=== PATIENT | female | born 1980 ===

== ENCOUNTER 2022-05-29 15:32 | Emergency (ER) | payer OTHER, SELFPAY ==
[2022-05-29 16:36] VITALS: BP 157/91; PULSE 80; RESP 14; TEMP 35.8; O2SAT 100; BMI 37.0
[2022-05-29 16:50] LABS: MANUAL DIFF FLAG NO
[2022-05-29 16:52] LABS: Basophils Absolute Auto 0.1 X10*3/uL (0.0-0.2); Basophils Percent Auto 0.5 % (0-2); Eosinophils Absolute Auto 0.1 X10*3/uL (0.0-0.4); Eosinophils Percent Auto 1.1 % (0-4); Hemoglobin 14.5 g/dl (12.0-16.0); Imm Gran Abs Auto 0.03 X10*3/uL (0.00-0.03); Imm Gran Pct Auto 0.3 % (0.0-0.4); Lymphocytes Absolute Auto 1.9 X10*3/uL (1.2-4.9); Lymphocytes Percent Auto 17.4 % (20-40); Mean Corpuscular HGB Conc 33.7 g/dl (31.0-35.0); Mean Corpuscular Hemoglobin 30.5 pg (27.0-33.0); Mean Corpuscular Volume 90.3 fL (80.0-98.0); Mean Platelet Volume 9.1 fL (9.4-12.3); Monocytes Absolute Auto 0.8 X10*3/uL (0.1-1.2); Monocytes Percent Auto 7.7 % (2-11); Platelet Count 264 X10*3/uL (160-400); Red Blood Count 4.76 X10*6/uL (4.20-5.50)
[2022-05-29 17:05] LABS: Alanine Aminotransferase 14 U/L (0-31); Albumin Level 4.4 g/dL (3.5-5.0); Alkaline Phosphatase 55 U/L (39-117); Anion Gap 12 (12-20); Aspartate Amino Transferase 16 U/L (5-31); Bilirubin Total 0.5 mg/dL (0.0-1.0); Blood Urea Nitrogen 15 mg/dL (9-16); Calcium 9.4 mg/dL (8.4-10.2); Carbon Dioxide 27 mmol/L (22-29); Chloride 105 mmol/L (96-108); Creatinine Clr Calc Pharmacy 84.1; Estimated Glomerular Filt Rate > 60; Glucose Random 79 mg/dL (60-115); Sodium 140 mmol/L (135-145); Total Protein 7.6 g/dL (6.5-8.0)
[2022-05-30 00:58] VITALS: BP 131/71; PULSE 79; RESP 16; O2SAT 98
--- NOTE | 2022-05-30 01:12 | PC.NURSE ---
Assumed care of pt at 0112.
--- NOTE | 2022-05-30 01:15 | PC.NURSE ---
Pt states she felt a little dizzy, off, and confused while at work. She started to menstruate yesterday but noticed today was very heavy and she found that she had some 'clots' as well. Pt states this is not typical for her. Pt c/o fatigue.
--- NOTE | 2022-05-30 01:40 | ED_ITS ---
HPI - General Adult General Chief complaint: General Medical Stated complaint: Heavy menstruation/Weakness Time Seen by Provider: 05/30/22 01:40 Source: patient Mode of arrival: ambulatory Limitations: language barrier (Haitian speaking only, lobster fisherman used) History of Present Illness HPI narrative: 41-year-old female who presents emergency department for evaluation of unusually heavy menstrual periods. Patient states that she gets monthly menstrual periods. She states that 3 days prior she started to menstruate. She states that the menstrual flow is much heavier than usual. She states that she is soaking through 10 pads per day as opposed to 3-4 pads per day. She states that normally her menstrual blood is clotted and dark and now her menstrual blood is liquidy and bright red. She denied any abdominal pain. She denied fever or chills. She denied lightheadedness, dizziness or weakness. She states that she was at work when she did not feel well sober coworkers brought her to the emergency department for evaluation. The patient is a . She had 1 C- section in the past. Related Data Allergies Allergy/AdvReac Type Severity Reaction Status Date / Time No Known Allergies Allergy Verified 05/29/22 16:36 Review of Systems Review of Systems: Yes all other systems are reviewed and are negative [facility] Past Medical History [facility] Narrative: Past medical history: None. Patient is a . Past surgical history C- section. Social history: She denies tobacco, alcohol and drug use. Social History Social History Alcohol intake: never Patient Tobacco Use Status: Never used Tobacco Use of substances other than those prescribed or required for medical reasons: No Advance Directives: No Physical Exam ED Vital Signs: Vital Signs - 24 hr 05/29/22 16:36 05/30/22 00:58 Temperature 96.5 F L Pulse Rate 80 79 Respiratory Rate 14 16 Blood Pressure 157/91 H 131/71 Pulse Oximetry 100 98 Oxygen Delivery Method Room Air Room Air BMI result Body Mass Index 37.0 Const General: cooperative and no acute distress Orientation/consciousness: oriented to person and oriented to place Limitations: no limitations HENMT Head: Yes normal to inspection, Yes normocephalic and Yes atraumatic Ears: external ears normal General nose exam: Normal external nose present Face and sinus: Yes normal facial exam Mouth: Normal oral and palatal mucosa present Throat: Yes posterior oropharynx normal Eyes General: appearance normal, both eyes and all related structures Pupils: Equal, round and reactive pupils present Neck Neck: Yes normal visual inspection, Yes no lymphadenopathy, Yes trachea midline and Yes supple Chest Chest palpation & inspection: normal inspection of the chest and normal palpati on of entire chest wall Resp Effort & Inspection: normal respiratory effort and able to speak in complete sentences Auscultation: clear to auscultation bilaterally Cardio Rate: regular rate Rhythm: regular rhythm Heart sounds: S1 normal heart sound present, S2 normal heart sound present and no murmurs GI Inspection: Yes normal to inspection Palpation (GI): Soft to palpation, nontender and no guarding Auscultation: normal bowel sounds Other: The pelvic exam was deferred as per patient request. General: Yes no CVA tenderness Back/Spine/Pelvis Back: no CVA tenderness Skin General skin exam: no rashes or lesions noted Neuro General: oriented to person and oriented to place Cranial nerves: Yes CN's II-XII intact bilaterally and Yes Equal, round and reactive pupils present Cognition (Neuro): normal cognition Motor exam (neuro): 5/5 motor strength present throughout Extrem General: Yes normal to inspection Psych Appearance: grossly normal Speech and movement: Normal speech and movement present Affect: normal affect Attitude: cooperative Thought process: Normal thought process present Thought content: Normal thought content present Course Course Course Narrative: 41-year-old female who presents emergency department for evaluation for evaluation of heavy menstrual bleeding x3 days. The patient gets monthly periods. She states that she is bleeding more than usual, soaking to 10 pads per day as opposed to 3-4 pads. She also states that the menstrual blood is not clotted and is watery and bright red. She denied abdominal pain, lightheadedness, dizziness, fever chills. She is a and had 1 in the past. Vital signs did reveal an elevated blood pressure of 157/91 otherwise were unremarkable. Patient had no abdominal tenderness. I did discuss doing a pelvic exam on the patient however she deferred at this time and does not want a pelvic exam. The patient's laboratory evaluation revealed a normal H&H of 14 in 43 which I think is very reassuring. I did discuss this with her. I do not think the patient needs to be started on Provera at this time and I believe that this menstrual period will resolve the next week. The patient was given printed instructions on dysfunctional menstrual bleeding. She was advised to follow-up with our adding machine servicer on-call for re-evaluation. Medical Decision Making Lab Data Result diagrams: 05/29/22 16:41 05/29/22 16:41 Labs: Lab Results 05/29/22 05/29/22 Range/Units 16:41 16:41 WBC 11.0 H (4.8-10.8) X10*3/uL RBC 4.76 (4.20-5.50) X10*6/uL Hgb 14.5 (12.0-16.0) g/dl Hct 43.0 (37.0-47.0) % MCV 90.3 (80.0-98.0) fL MCH 30.5 (27.0-33.0) pg MCHC 33.7 (31.0-35.0) g/dl RDW 12.0 (11.0-16.0) % Plt Count 264 (160-400) X10*3/uL MPV 9.1 L (9.4-12.3) fL Immature Gran % (Auto) 0.3 (0.0-0.4) % Neut % (Auto) 73.0 (45-73) % Lymph % (Auto) 17.4 L (20-40) % [place] % (Auto) 7.7 (2-11) % Eos % (Auto) 1.1 (0-4) % Baso % (Auto) 0.5 (0-2) % Lymph # (Auto) 1.9 (1.2-4.9) X10*3/uL [place] # (Auto) 0.8 (0.1-1.2) X10*3/uL Eos # (Auto) 0.1 (0.0-0.4) X10*3/uL Baso # (Auto) 0.1 (0.0-0.2) X10*3/uL Abs Immat Gran (auto) 0.03 (0.00-0.03) X10*3/uL Absolute Neuts (auto) 8.0 (2.0-8.3) x10*3/uL Absolute Nucleated RBC 0.000 (0.0-0.012) X10*3/uL Nucleated RBC % (auto) 0.0 (0.0-0.2) /100WBC Sodium 140 (135-145) mmol/L Potassium 4.0 (3.3-5.1) mmol/L Chloride 105 (96-108) mmol/L Carbon Dioxide 27 (22-29) mmol/L Anion Gap 12 (12-20) BUN 15 (9-16) mg/dL Creatinine 0.85 (0.5-1.4) mg/dL Estim Creat Clear Calc 84.1 Estimated GFR > 60 Random Glucose 79 (60-115) mg/dL Calcium 9.4 (8.4-10.2) mg/dL Total Bilirubin 0.5 (0.0-1.0) mg/dL AST 16 (5-31) U/L ALT 14 (0-31) U/L Alkaline Phosphatase 55 (39-117) U/L Total Protein 7.6 (6.5-8.0) g/dL Albumin 4.4 (3.5-5.0) g/dL Discharge Plan Discharge Clinical Impression: Heavy menstrual bleeding Qualifiers: Menorrhagia type: with regular cycle Qualified Code(s): N92.0 - Excessive and frequent menstruation with regular cycle Patient Disposition: Home, Self-Care Instructions: Menorrhagia (ED) Additional Instructions: Your hematocrit and hemoglobin were normal at 14 and 43 which is very reassuring. I believe that this is and unusually heavy menstrual period for you and it should resolve in the next week. Follow the printed instructions on please return to the emergency department if your symptoms get worse or if you develop any new symptoms that are concerning to you. Follow-up with our on-call adding machine servicer, Dr. Dominguez. Call his office to make an appointment with the next available provider Print Language: Haitian
[2022-05-30 03:04] VITALS: BP 122/73; PULSE 68; RESP 18; TEMP 36.1
--- NOTE | 2022-05-30 03:16 | PC.NURSE ---
Reviewed discharge instruction with pt. Pt verbalized understanding. Pt a&o, no sob or chest pain. pt able to ambulate with a steady gait.
== END 2022-05-30 03:18 | disposition home or self-care (01) ==
PROVIDERS: Emergency Provider Emergency Medicine Emergency Medical Services
DX: N92.0 Excessive and frequent menstruation with regular cycle (principal)
CPT/HCPCS: 36415; 80053; 85025; 99283; 99284

== ENCOUNTER 2023-04-12 17:49 | Emergency (ER) | payer OTHER, SELFPAY ==
--- NOTE | ~2023-04-12 | US_ITS ---
EXAMINATION: US ABDOMEN LIMITED CLINICAL INFORMATION: Right upper quadrant pain. COMPARISON: None available. TECHNIQUE: Real-time imaging of the right upper quadrant abdominal viscera. FINDINGS: PANCREAS: Normal. LIVER: Within the right hepatic lobe, a 0.9 x 1.1 x 0.7 cm hyperechoic, circumscribed mass is seen. This shows no significant associated color Doppler flow. This is a benign finding, which requires no imaging follow-up. Within the left hepatic lobe, a 6 mm in maximal diameter benign, simple cyst is seen. The liver is normal in size. The liver contour is normal. Parenchymal echogenicity is normal. There is no intrahepatic biliary duct dilatation seen. GALLBLADDER: Normal. The gallbladder is physiologically distended without evidence of stones, sludge, polyps, wall thickening or pericholecystic fluid. COMMON BILE DUCT: Normal in caliber measuring 0.3 cm in diameter. RIGHT KIDNEY: At the interpolar aspect, a 3.1 x 2.4 x 3.1 cm mildly complex cyst is seen, with fine septation. This shows no mural nodularity or associated color Doppler flow. There is pelviectasis, without eduardo hydronephrosis. No renal calculi or focal parenchymal lesions. The kidney measures 10.8 cm in maximum dimension. FREE FLUID: None. US/US abdomen limited IMPRESSION: 1. Within the right hepatic lobe, a 1.1 cm hyperechoic, circumscribed mass is seen, with ultrasound features characteristic for a benign hemangioma. This is of doubtful clinical significance. If of clinical concern (i.e., history of hepatocellular disease or known malignancy), this can be further evaluated with dynamic CT or MRI. 2. A 3.1 cm mildly complex right renal cyst is seen, with fine septation. If relevant to patient management, this can be more fully evaluated with contrast-enhanced CT or MRI (renal mass protocol).
--- NOTE | 2023-04-12 19:52 | ED_ITS ---
HPI - General Adult General Chief complaint: Abdominal Pain Stated complaint: abdominal pain Time Seen by Provider: 04/13/23 02:10 Source: patient Mode of arrival: ambulatory Limitations: no limitations History of Present Illness HPI narrative: This is a [id number]-female presenting to the emergency department with a complaint of right upper quadrant abdominal pain x 1 month. Started on oral control 3 months ago, however the hormone level was too high for her as she did not feel well on them, and her doctor switched her to the lowest dose of control 1 month ago and has had abdominal pain since. She has had intermittent nausea and vomiting. Admits to having diarrhea x 2 days. LMP April 01. patient states that her pain is mostly in the epigastric area Onset (ago): month(s) Location: abdomen Severity: mild Quality: burning Related Data Previous Rx's Medication Instructions Recorded pantoprazole 40 mg tablet,delayed 40 mg PO DAILY #20 tabs 04/13/23 release (Protonix) Allergies Allergy/AdvReac Type Severity Reaction Status Date / Time No Known Allergies Allergy Verified 05/29/22 16:36 Review of Systems Review of Systems: Yes all other systems are reviewed and are negative Gastrointestinal: Gastrointestinal: Reports abdominal pain, Reports nausea and Reports vomiting PMFSH Social History Social History Alcohol intake: never Patient Tobacco Use Status: Never used Tobacco Advance Directives: No Advance Directives Information Provided: Yes Physical Exam ED Vital Signs: Vital Signs - 24 hr 04/12/23 19:54 04/13/23 01:33 Temperature 98.4 F 98.0 F Pulse Rate 86 78 Respiratory Rate 18 16 Blood Pressure 164/89 H 174/82 H Pulse Oximetry 100 98 Oxygen Delivery Method Room Air Room Air BMI result Body Mass Index 37.5 Const Other: appears uncomfortable Nutritional Appearance: obese Orientation/consciousness: oriented to person and patient oriented x3 Limitations: no limitations HENMT Head: Yes normal to inspection Ears: external ears normal General nose exam: Normal external nose present Mouth: Normal oral and palatal mucosa present and oropharynx normal Throat: Yes posterior oropharynx normal Eyes General: appearance normal, both eyes and all related structures Neck Neck: Yes normal visual inspection Chest Chest palpation & inspection: normal inspection of the chest Resp Auscultation: clear to auscultation bilaterally Cardio Jugular venous distension: no JVD Rate: regular rate Rhythm: regular rhythm Heart sounds: S1 normal heart sound present and S2 normal heart sound present GI Inspection: Yes normal to inspection Palpation (GI): Soft to palpation, nontender and No hepatosplenomegaly present Auscultation: normal bowel sounds General: Yes no CVA tenderness Back/Spine/Pelvis Back: no CVA tenderness Skin General skin exam: no rashes or lesions noted Neuro General: oriented to person and patient oriented x3 Cranial nerves: Yes CN's II-XII intact bilaterally Motor exam (neuro): 5/5 motor strength present throughout Extrem General: Yes normal to inspection Psych Appearance: grossly normal Course Course Course Narrative: This is an RME: Additional HPI, ROS, PE not included below will be deferred to primary provider. This is a 19-usxr-wkh-female presenting to the emergency department with a complaint of right upper quadrant abdominal pain x 1 month. Started on oral control 3 months ago, however the hormone level was too high for her as she did not feel well on them, and her doctor switched her to the lowest dose of control 1 month ago and has had abdominal pain since. She has had intermittent nausea and vomiting. Admits to having diarrhea x 2 days. LMP April 01. Plan: Labs, UA, US RUQ ordered. Reevaluation(s) Reevaluation #1: labs, UA and ultrasound essentially normal will start on protonix Time: 02:21 Medical Decision Making Differential Diagnosis Differential Diagnoses: The differential diagnosis associated with the presenta tion includes (cholecystitis, pancreatitis, biliary colic, PUD were all considered) Admission/Observation Consideration of admission/observation: Escalation of care including admission/observation considered (In this patient with increasing abdominal pain for 1 month, admission was considered) Lab Data MDM Lab Attestation statement: I reviewed the patient's lab results. (significant for slightly elevated WBC, normal LFts and lipase) 04/12/23 21:17 04/12/23 21:17 Labs: Lab Results 04/12/23 04/12/23 04/12/23 Range/Units 21:17 21:17 21:17 WBC 12.2 H (4.8-10.8) X10*3/uL RBC 4.72 (4.20-5.50) X10*6/uL Hgb 14.5 (12.0-16.0) g/dl Hct 42.0 (37.0-47.0) % MCV 89.0 (80.0-98.0) fL MCH 30.7 (27.0-33.0) pg MCHC 34.5 (31.0-35.0) g/dl RDW 12.0 (11.0-16.0) % Plt Count 286 (160-400) X10*3/uL MPV 9.4 (9.4-12.3) fL Immature Gran % (Auto) 0.3 (0.0-0.4) % Neut % (Auto) 67.1 (45-73) % Lymph % (Auto) 25.9 (20-40) % [place] % (Auto) 5.5 (2-11) % Eos % (Auto) 0.7 (0-4) % Baso % (Auto) 0.5 (0-2) % Lymph # (Auto) 3.2 (1.2-4.9) X10*3/uL [place] # (Auto) 0.7 (0.1-1.2) X10*3/uL Eos # (Auto) 0.1 (0.0-0.4) X10*3/uL Baso # (Auto) 0.1 (0.0-0.2) X10*3/uL Abs Immat Gran (auto) 0.04 H (0.00-0.03) X10*3/uL Absolute Neuts (auto) 8.2 (2.0-8.3) x10*3/uL Absolute Nucleated RBC 0.000 (0.0-0.012) X10*3/uL Nucleated RBC % (auto) 0.0 (0.0-0.2) /100WBC Sodium 138 (135-145) mmol/L Potassium 3.7 (3.3-5.1) mmol/L Chloride 104 (96-108) mmol/L Carbon Dioxide 24 (22-29) mmol/L Anion Gap 14 (12-20) BUN 9 (9-16) mg/dL Creatinine 0.87 (0.5-1.4) mg/dL Estim Creat Clear Calc 81.8 Estimated GFR > 60 Random Glucose 102 (60-115) mg/dL Calcium 8.9 (8.4-10.2) mg/dL Magnesium 2.1 (1.6-2.6) mg/dL Total Bilirubin 0.4 (0.0-1.0) mg/dL Direct Bilirubin 0.2 (0.0-0.5) mg/dL AST 21 (5-31) U/L ALT 13 (0-31) U/L Alkaline Phosphatase 47 (39-117) U/L Total Protein 7.7 (6.5-8.0) g/dL Albumin 4.3 (3.5-5.0) g/dL Lipase 29 (8-78) U/L Urine Color Yellow Urine Appearance Clear Urine pH 6.0 (5.0-9.0) Ur Specific [place] 1.025 (1.005-1.025) Urine Protein Negative (Neg-Trace) mg/dL Urine Glucose (UA) Negative (Negative) mg/dL Urine Ketones Trace (Negative) mg/dL Urine Blood Negative (Negative) Urine Nitrite Negative (Negative) Ur Leukocyte Esterase Negative (Negative) Independent Interpretation I performed an independent interpretation of an: Ultrasound (normal gallbladder, no stones) Radiology Impression Discussion of test interpretation with radiology: I have reviewed the radiologist's reading. (liver cyst and renal cyst was noted) Tests considered The following testing was considered but not selected: Ct of abd was considered but the patients lfts were normal, afebrile, soft a bdomen Prescription Management I considered prescription management with: Pain Medication (narcotic pain meds were considered) Discharge Plan Discharge Clinical Impression: Gastritis Patient Disposition: Home, Self-Care Instructions: Gastritis (ED) Prescriptions: New pantoprazole [Protonix] 40 mg tablet,delayed release (DR/EC) 40 mg PO DAILY Qty: 20 0RF Referrals: Physician,Unknown J [Primary Care Provider] - 5 days
[2023-04-12 19:54] VITALS: BP 164/89; PULSE 86; RESP 18; TEMP 36.9; O2SAT 100; BMI 37.5
--- NOTE | 2023-04-12 21:21 | MHC.EDTECH ---
PATIENT BLOOD DRAWN AND URINE SAMPLE COLLECTED AND SENT TO LAB .
[2023-04-12 21:24] LABS: MANUAL DIFF FLAG NO
[2023-04-12 21:25] LABS: Basophils Absolute Auto 0.1 X10*3/uL (0.0-0.2); Basophils Percent Auto 0.5 % (0-2); Eosinophils Absolute Auto 0.1 X10*3/uL (0.0-0.4); Eosinophils Percent Auto 0.7 % (0-4); Hemoglobin 14.5 g/dl (12.0-16.0); Imm Gran Abs Auto 0.04 X10*3/uL (0.00-0.03); Imm Gran Pct Auto 0.3 % (0.0-0.4); Lymphocytes Absolute Auto 3.2 X10*3/uL (1.2-4.9); Lymphocytes Percent Auto 25.9 % (20-40); Mean Corpuscular HGB Conc 34.5 g/dl (31.0-35.0); Mean Corpuscular Hemoglobin 30.7 pg (27.0-33.0); Mean Platelet Volume 9.4 fL (9.4-12.3); Monocytes Absolute Auto 0.7 X10*3/uL (0.1-1.2); Monocytes Percent Auto 5.5 % (2-11); Neutrophils Absolute Auto 8.2 x10*3/uL (2.0-8.3); Neutrophils Percent Auto 67.1 % (45-73); Platelet Count 286 X10*3/uL (160-400); Red Blood Count 4.72 X10*6/uL (4.20-5.50); White Blood Count 12.2 X10*3/uL (4.8-10.8)
[2023-04-12 21:27] LABS: Appearance Urine Clear; Color Urine Yellow; Glucose Urine UA Negative (Negative); Leukocyte Esterase Urine Negative (Negative); Nitrite Urine Negative (Negative); Specific Gravity - Urine 1.025 (1.005-1.025); Urine Blood Negative (Negative); Urine Ketones Trace mg/dL (Negative); Urine Protein Negative (Neg-Trace)
[2023-04-12 21:43] LABS: Alanine Aminotransferase 13 U/L (0-31); Albumin Level 4.3 g/dL (3.5-5.0); Alkaline Phosphatase 47 U/L (39-117); Anion Gap 14 (12-20); Aspartate Amino Transferase 21 U/L (5-31); Bilirubin Direct 0.2 mg/dL (0.0-0.5); Bilirubin Total 0.4 mg/dL (0.0-1.0); Blood Urea Nitrogen 9 mg/dL (9-16); Calcium 8.9 mg/dL (8.4-10.2); Carbon Dioxide 24 mmol/L (22-29); Chloride 104 mmol/L (96-108); Creatinine Clr Calc Pharmacy 81.8; Estimated Glomerular Filt Rate > 60; Glucose Random 102 mg/dL (60-115); Lipase 29 U/L (8-78); Magnesium 2.1 mg/dL (1.6-2.6); Potassium 3.7 mmol/L (3.3-5.1); Sodium 138 mmol/L (135-145); Total Protein 7.7 g/dL (6.5-8.0)
[2023-04-13 01:33] VITALS: BP 174/82; PULSE 78; RESP 16; TEMP 36.7; O2SAT 98
[2023-04-13 02:45] VITALS: BP 145/81; PULSE 72; RESP 16; TEMP 36.8; O2SAT 98
== END 2023-04-13 03:14 | disposition home or self-care (01) ==
PROVIDERS: Physician Assistant Medical; Emergency Provider Emergency Medicine
DX: K29.70 Gastritis, unspecified, without bleeding (principal); R10.11 Right upper quadrant pain; Z79.899 Other long term (current) drug therapy
CPT/HCPCS: 36415; 76705; 80048; 80076; 81003; 83690; 83735; 85025; 99283; 99284